=== PATIENT | female | born 1980 | race Caucasian/White ===

== ENCOUNTER 2018-05-10 14:27 | Emergency (ER) | payer SELFPAY ==
[2018-05-10 15:02] VITALS: BP 126/70
[2018-05-10] MEDS ORDERED: ONDANSETRON 4 MG TAB.RAPDIS PO ONE (15:42)
--- NOTE | 2018-05-10 15:45 | ER Document Report ---
ED Medical Screen (RME) - General Chief Complaint: Nausea/Vomiting/Diarrhea Stated Complaint: VOMITING,ABDOMINAL PAIN Time Seen by Provider: 05/10/18 15:37 Mode of Arrival: Ambulatory Information source: Patient TRAVEL OUTSIDE OF THE [place] IN LAST 30 DAYS: No - HPI Patient complains to provider of: Nausea and vomiting Onset: Other - 30-year-old otherwise healthy female presents for evaluation of nausea and vomiting, she notes that it began yesterday with some associated diarrhea as well, she continued to have vomiting through the day last night, she has not had probably 12 episodes of vomiting as well as loose stools with inability to eat or drink anything, she has been trying to eat just ice chips to try and help her feel better. She never had anything like this in the past, denies any chest pain shortness of breath fevers lightheadedness rashes chills constipation back pain or dysuria. - Related Data Allergies/Adverse Reactions: No Known Allergies Allergy (Verified 05/10/18 14:29) Past Medical History - General Information source: Patient - Social History Cigarette use (# per day): No Chew tobacco use (# tins/day): No Frequency of alcohol use: None Drug Abuse: None Renal/ Medical History: Denies: Hx Peritoneal Dialysis Past Surgical History: Reports: Hx Section, Hx Cholecystectomy Review of Systems - Review of Systems -: Yes All other systems reviewed and negative Physical Exam - Vital signs Vitals: Temp Pulse Resp BP Pulse Ox 98.2 F 104 H 12 126/70 H 100 05/10/18 15:01 05/10/18 15:01 05/10/18 15:01 05/10/18 15:01 05/10/18 15:01 - General General appearance: Appears well In distress: None - HEENT Head: Normocephalic Eyes: Normal Conjunctiva: Normal Ears: Normal - Respiratory Respiratory status: No respiratory distress Chest status: Nontender Breath sounds: Normal Chest palpation: Normal - Cardiovascular Rhythm: Regular Heart sounds: Normal auscultation - Abdominal Inspection: Normal Distension: No distension Bowel sounds: Normal Tenderness: Nontender - Back Back: Normal - Extremities General upper extremity: Normal inspection General lower extremity: Normal inspection - Neurological Neuro grossly intact: Yes Cognition: Normal Orientation: AAOx4 [place] Coma Scale Eye Opening: Spontaneous [place] Coma Scale Verbal: Oriented [place] Coma Scale Motor: Obeys Commands [place] Coma Scale Total: 15 Speech: Normal - Psychological Associated symptoms: Normal affect Course - Re-evaluation Re-evalutation: 05/10/18 15:55 This 30-year-old female presents for evaluation of painless nausea and vomiting. She is very well-appearing on examination and no obvious distress. Abdominal examination is benign with no rebound or guarding. Given her well appearance nonfocal abdominal examination lack of risk factors will plan to administer antiemetic. Will plan for urinalysis reassessment p.o. challenge. 05/10/18 16:16 This patient's urinalysis was canceled as it spilled in the back, she noted at this time she is to leave to go get her daughter, she is unwilling to wait for a repeat check of her urine. Her nausea has improved slightly with the administration of Zofran. Given that she has had some improvement in her symptoms will give a prescription for Zofran. Encouraged to stay again though she is unable to, given strict return precautions to her and encouraged her to follow-up. She agreed with current plan. - Vital Signs Vital signs: Temp Pulse Resp BP Pulse Ox 98.2 F 104 H 12 126/70 H 100 05/10/18 15:01 05/10/18 15:01 05/10/18 15:01 05/10/18 15:01 05/10/18 15:01 Doctor's Discharge - Discharge Clinical Impression: Vomiting Qualifiers: Vomiting type: unspecified Vomiting Intractability: unspecified Nausea presence : with nausea Qualified Code(s): R11.2 - Nausea with vomiting, unspecified Condition: Stable Disposition: HOME, SELF-CARE Instructions: Antinausea Medication ([facility]) Additional Instructions: Please return for persistent vomiting increasing pain or other symptoms. Prescriptions: Ondansetron [Zofran Odt 4 mg Tablet] 1 - 2 tab PO Q4H PRN #15 tab.rapdis PRN Reason: For Nausea/Vomiting
== END 2018-05-10 16:12 | disposition home or self-care (01) ==
LOC: ER 14:27
DX: R11.2 Nausea with vomiting, unspecified (principal); R19.7 Diarrhea, unspecified; Z90.49 Acquired absence of other specified parts of digestive tract
CPT/HCPCS: 99283; 81025; S0119